=== PATIENT | female | born 2000 ===

== ENCOUNTER 2020-06-06 09:42 | Inpatient (IN) ==
[2020-06-06] MEDS ORDERED: FAMOTIDINE 20 MG/2 ML VIAL IV ONE (10:12)
[2020-06-06] MEDS ORDERED: CITRIC ACID/SODIUM CITRATE 30 ML UDCUP PO ONE (10:12)
[2020-06-06] MEDS ORDERED: ceFAZolin 2,000 MG in PREMIX 1 EACH IV ONE (10:12)
[2020-06-06] MEDS ORDERED: OXYTOCIN/LR 30 UNIT/1,000 ML BAG IV ONE (10:14)
[2020-06-06] MEDS ORDERED: OXYTOCIN 10 UNIT/ML VIAL IM ONE (10:14)
[2020-06-06] MEDS: LACTATED RINGERS 1,000 ML IV SCH ×2 (10:15→13:33)
[2020-06-06 10:26] LABS: Basophils % 0.2 % (0.0-0.8); Eosinophils # 0.1 10*3/uL (0.0-0.87); Eosinophils % 0.5 % (0.00-10.9); Hematocrit 39.9 VOL% (35.7-47.0); Hemoglobin 13.4 GM/DL (12.0-16.0); Immature Granulocytes % 0.2 %; Immature Granulocytes Absolute 0.02 #; Lymphocytes # 3.3 10*3/uL (1.4-4.0); Lymphocytes % 35.9 % (21.3-54.2); Mean Corpuscular HGB Conc 33.6 GM/DL (32-36); Mean Corpuscular Volume 88.3 FL (87-102); Mean Platelet Volume 9.9 FL (9.6-12.0); Monocytes % 6.2 % (1.7-12.7); Platelet Count 275 T/CUMM (130-400); Red Blood Count 4.52 MC/CUMM (3.8-5.5); Red Cell Distribution Width 13.1 % (9.3-17.3); White Blood Count 9.2 T/CUMM (4-12)
[2020-06-06 11:00] LABS: Bilirubin,Total 0.7 MG/DL (0.2-1.0); Calcium 9.1 MG/DL (8.5-10.1); Osmolality,Calculated 270.7 MOS/KG (273-304); Potassium 3.5 MMOL/L (3.5-5.1); Total Protein 7.6 G/DL (6.4-8.2)
[2020-06-06] MEDS ORDERED: BUPIVACAINE SPINAL 0.75% 2 ML AMP SPINAL ONE (14:29)
[2020-06-06] MEDS ORDERED: ONDANSETRON 4 MG/2 ML VIAL ONE (14:29)
[2020-06-06] MEDS ORDERED: MORPHINE 10 MG/10 ML VIAL ONE (14:30)
[2020-06-06] MEDS ORDERED: fentaNYL 100 MCG/2 ML VIAL ONE (14:30)
[2020-06-06] MEDS ORDERED: BUPIVACAINE MPF 0.25% 30 ML VIAL ONE (14:41)
[2020-06-06] MEDS ORDERED: miSOPROStoL 200 MCG TABLET ONE (14:59)
[2020-06-06] MEDS ORDERED: METHYLERGONOVINE 0.2 MG/1 ML AMP ONE (14:59)
[2020-06-06] MEDS ORDERED: CARBOPROST TROMETHAMINE 250 MCG/ML AMP IM ONE (15:00)
[2020-06-06] MEDS ORDERED: ePHEDrine 50 MG/ML VIAL ONE (15:16)
[2020-06-06] MEDS ORDERED: MIDAZOLAM 2 MG/2 ML VIAL ONE (15:33)
[2020-06-06] MEDS ORDERED: PHENYLEPHRINE 1 MG/10 ML SYRINGE IV ONE (15:33)
[2020-06-06] MEDS ORDERED: ACETAMINOPHEN 1,000 MG/100 ML VIAL IV ONE (15:37)
[2020-06-06 15:48] LABS: Cord Arterial Blood HCO3 21.2 MMOL/L
[2020-06-06 15:51] LABS: Cord Venous Blood HCO3 22.3 MMOL/L; Cord Venous Blood PO2 26.1
[2020-06-06 16:11] LABS: Bilirubin,Urine Negative (Negative); Blood, Urine Negative (Negative); Glucose,Urine (UA) Negative (Negative); Ketones,Urine 20 mg/dL (Negative); Mucus,Urine Occasional /LPF (Occasional); Nitrite,Urine Negative (Negative); Protein,Urine Negative; Urine Appearance CLEAR (Clear); Urine Color Yellow (Yellow); Urine Urobilinogen < 2.0 EU/DL (0.2-1.0); WBC,Urine 1 /HPF (0-6)
[2020-06-06] MEDS ORDERED: ACETAMINOPHEN 325 MG TABLET PO PRN (16:13)
[2020-06-06] MEDS ORDERED: RHO(D) IMMUNE GLOBULIN 300 MCG SYRINGE IM ONE (16:13)
[2020-06-06] MEDS ORDERED: OXYTOCIN/LR 20 UNIT/1,000 ML BAG IV ONE (16:13)
[2020-06-06] MEDS ORDERED: SIMETHICONE CHEW 80 MG TABLET PO PRN (16:13)
[2020-06-06] MEDS ORDERED: IBUPROFEN 800 MG TABLET PO PRN (16:13)
[2020-06-06] MEDS ORDERED: ONDANSETRON 4 MG/2 ML VIAL IV PRN (16:13)
[2020-06-06] MEDS ORDERED: ceFAZolin 1,000 MG in SYRINGE 1 EACH IV SCH (17:00)
[2020-06-06] MEDS: ceFAZolin 1,000 MG in SYRINGE 1 EACH IV SCH (23:01)
[2020-06-06] MEDS: DOCUSATE SODIUM 100 MG CAPSULE PO SCH (23:57)
[2020-06-07] MEDS: LACTATED RINGERS 1,000 ML IV SCH ×2 (03:03→03:04)
[2020-06-07 05:23] LABS: Basophils % 0.3 % (0.0-0.8); Eosinophils # 0.1 10*3/uL (0.0-0.87); Eosinophils % 0.9 % (0.00-10.9); Hematocrit 35.2 VOL% (35.7-47.0); Hemoglobin 11.7 GM/DL (12.0-16.0); Immature Granulocytes % 0.4 %; Immature Granulocytes Absolute 0.04 #; Lymphocytes # 2.4 10*3/uL (1.4-4.0); Lymphocytes % 23.1 % (21.3-54.2); Mean Corpuscular HGB Conc 33.2 GM/DL (32-36); Mean Corpuscular Volume 88.2 FL (87-102); Mean Platelet Volume 9.9 FL (9.6-12.0); Monocytes % 8.3 % (1.7-12.7); Platelet Count 221 T/CUMM (130-400); Red Blood Count 3.99 MC/CUMM (3.8-5.5); Red Cell Distribution Width 13.1 % (9.3-17.3); White Blood Count 10.6 T/CUMM (4-12)
[2020-06-07] MEDS: ceFAZolin 1,000 MG in SYRINGE 1 EACH IV SCH (07:02)
[2020-06-07] MEDS: DOCUSATE SODIUM 100 MG CAPSULE PO SCH ×2 (09:05→21:14)
[2020-06-07] MEDS: MULTIVITAMIN (PRENATAL) TABLET PO SCH (09:05)
[2020-06-07] MEDS: MAGNESIUM HYDROXIDE SUSP 30 ML UDCUP PO PRN ×2 (09:05→21:14)
[2020-06-07] MEDS: METOCLOPRAMIDE 10 MG TABLET PO SCH (15:27)
[2020-06-08] MEDS: METOCLOPRAMIDE 10 MG TABLET PO SCH (04:45)
[2020-06-08 07:26] VITALS: BP 118/68
[2020-06-08] MEDS: MULTIVITAMIN (PRENATAL) TABLET PO SCH (09:54)
[2020-06-08] MEDS: DOCUSATE SODIUM 100 MG CAPSULE PO SCH (09:54)
== END 2020-06-08 12:35 | disposition home or self-care (01) | DRG 540 ==
LOC: N.LD 09:42 → N.OB 20:26
PROVIDERS: ADMIT Obstetrics & Gynecology; ATTEND Obstetrics & Gynecology
PROC: LDCSECT (ICD-10-PCS; 2020-06-06 13:15)